=== PATIENT | male | born 1995 | race Asian ===

== ENCOUNTER 2023-05-11 02:09 | Emergency (ER) | payer MEDICAID ==
[~2023-05-11] VITALS: Ht 165.1 cm; Wt 59.0 kg
[2023-05-11] MEDS ORDERED: IV LACTATED RINGERS SOLUTION 1,000 ML IV ONE (02:30)
[2023-05-11] MEDS ORDERED: DICYCLOMINE HCL LIQ 10 MG/5 ML UDC PO ONE (02:30)
[2023-05-11] MEDS ORDERED: ONDANSETRON 4 MG/2 ML VIAL IV ONE (02:30)
[2023-05-11] MEDS ORDERED: LOPERAMIDE HCL 2 MG CAPSULE PO ONE (02:30)
[2023-05-11] MEDS ORDERED: ONDANSETRON 4 MG/2 ML VIAL ONE (02:31)
[2023-05-11] MEDS ORDERED: HYDROMORPHONE 1 MG/1 ML DISP.SYRIN ONE (02:37)
[2023-05-11] MEDS ORDERED: HYDROMORPHONE 1 MG/1 ML DISP.SYRIN IV ONE (02:45)
[2023-05-11 03:02] LABS: BASOPHILS % (AUTO) 0.3 % (0.0-2.0); EOSINOPHILS # (AUTO) 0.1 K/uL (0.0-0.7); EOSINOPHILS % (AUTO) 0.7 % (0.0-7.0); HEMATOCRIT 51.5 % (36.7-47.1); HEMOGLOBIN 17.4 g/dL (12.5-16.3); LYMPHOCYTES # (AUTO) 0.8 K/uL (0.8-4.8); LYMPHOCYTES % (AUTO) 4.4 % (20.5-51.5); MEAN CORPUSCULAR HEMOGLOBIN 29.2 uug (23.8-33.4); MEAN CORPUSCULAR HGB CONC 34 g/dL (32.5-36.3); MEAN CORPUSCULAR VOLUME 86.5 fL (73.0-96.2); MONOCYTES # (AUTO) 1.2 K/uL (0.1-1.30); MONOCYTES % (AUTO) 6.3 % (0.0-11.0); NEUTROPHILS # (AUTO) 16.6 K/uL (1.8-8.9); NEUTROPHILS % (AUTO) 88.3 % (38.5-71.5); PLATELET COUNT (AUTO) 230 K/uL (152-348); RED BLOOD CELL COUNT(AUTO) 5.95 MIL/uL (4.06-5.63); RED CELL DISTRIBUTION WIDTH 12.6 % (12.1-16.2); WHITE BLOOD COUNT (AUTO) 18.8 K/uL (3.6-10.2)
[2023-05-11 03:06] LABS: DIFFERENTIAL COMMENT 1
[2023-05-11 03:07] LABS: CALCIUM 10.2 mg/dL (8.5-10.1); CREATININE 1.1 mg/dL (0.6-1.3); POTASSIUM 3.5 mmol/L (3.5-5.1)
[2023-05-11] MEDS ORDERED: DICYCLOMINE HCL LIQ 10 MG/5 ML UDC ONE (03:08)
[2023-05-11] MEDS ORDERED: LOPERAMIDE HCL 2 MG CAPSULE ONE (03:09)
[2023-05-11 03:13] LABS: ALBUMIN 5.4 g/dL (3.4-5.0); BILIRUBIN,TOTAL 0.9 mg/dL (0.2-1.0); TOTAL PROTEIN, SERUM 9.2 g/dL (6.4-8.2)
[2023-05-11] MEDS ORDERED: LOPE-195 PO (03:24)
[2023-05-11] MEDS ORDERED: DICY20TA11 PO (03:24)
[2023-05-11] MEDS ORDERED: ONDA4TAB5 PO (03:24)
[2023-05-11 03:48] VITALS: BP 114/73; O2SAT 98
== END 2023-05-11 03:49 | disposition home or self-care (01) ==
LOC: ER 02:25 → EDBD 02:25 → ER 03:49
DX: R10.84 Generalized abdominal pain (principal); R11.2 Nausea with vomiting, unspecified; R19.7 Diarrhea, unspecified; Z87.891 Personal history of nicotine dependence
CPT/HCPCS: 99284; 96374; 96361; 96375; 80053; 83690; 85025; 36415; J2405; J1170; J7120; A4663